=== PATIENT | male | born 1950 | race Caucasian/White ===

== ENCOUNTER → 2017-12-08 18:01 | Outpatient (CLI) | payer MEDICARE ==
[2014-12-11 11:20] VITALS: BMI 25.1
[~2017-12-08 18:01] MED LIST: AMBIEN10 MG PO; HYDROCODONE-APA1 TAB PO; IBUPROFEN400 MG PO; LYRICA75 MG PO; PREVACID15 MG PO
== END | disposition home or self-care (01) ==
LOC: D.MRI 18:01
DX: R41.82 Altered mental status, unspecified (principal)

== ENCOUNTER → 2018-01-03 12:55 | Outpatient (CLI) | payer MEDICARE, BC ==
[2014-12-11 11:20] VITALS: BMI 25.1
== END | disposition home or self-care (01) ==
LOC: D.US 12:55
DX: N50.89 Other specified disorders of the male genital organs (principal)